=== PATIENT | female | born 1945 | race Caucasian/White ===

== ENCOUNTER 2022-10-02 09:55 | Outpatient (CLI) | payer MEDICARE, SELFPAY | END 2022-10-02 09:56 | disposition home or self-care (01) | LOC: NFLDREF 10-03 10:05 | PROVIDERS: PCP Family Medicine; Referring Provider Family Medicine; Visit Provider Family Medicine | DX: Z00.00 Encounter for general adult medical examination without abnormal findings (principal); E03.9 Hypothyroidism, unspecified; I82.409 Acute embolism and thrombosis of unspecified deep veins of unspecified lower extremity; L82.1 Other seborrheic keratosis; I26.99 Other pulmonary embolism without acute cor pulmonale; Z80.0 Family history of malignant neoplasm of digestive organs; Z79.01 Long term (current) use of anticoagulants | CPT/HCPCS: 80048; 80061; 82378; 84443 ==

== ENCOUNTER 2022-10-03 10:15 | Outpatient (CLI) | payer MEDICARE, SELFPAY ==
--- NOTE | 2022-10-03 10:15 | CRLHL7_ITS ---
For Patients: As a result of the Century Cures Act, medical imaging exams and procedure reports are released immediately into your electronic medical record. You may view this report before your referring provider. If you have questions, please contact your health care provider. BILATERAL SCREENING MAMMOGRAM WITH COMPUTER-AIDED DETECTION AND TOMOSYNTHESIS TECHNIQUE: CC and MLO views were obtained. These mammographic images have been obtained using full-field digital technique. These mammographic images were interpreted with the benefit of computer-aided detection. Breast Tomosynthesis was used in this interpretation. COMPARISON FILM: 10/02/21, 09/24/20, 09/01/18. FINDINGS: The breasts are almost entirely fatty IMPRESSION: There is no radiographic evidence for malignancy. ASSESSMENT: BI-RADS Category 1: Negative RECOMMENDATION: Routine screening mammogram in 1 year. A lay language report of this examination will be provided to the patient. Sergio Woodward M.D. Diagnostic/Nuclear Medicine Radiologist [email or web address] ORALIA/Dictated by: Sergio Woodward MD @ 10/03/2022 11:06:00 AM (Electronically Signed)
== END 2022-10-03 10:16 | disposition home or self-care (01) ==
LOC: MAMMO 10:16
PROVIDERS: PCP Family Medicine; Visit Provider Family Medicine
DX: Z12.31 Encounter for screening mammogram for malignant neoplasm of breast (principal)
CPT/HCPCS: 77063; 77067

== ENCOUNTER 2023-11-11 14:20 | Outpatient (CLI) | payer MEDICARE, SELFPAY ==
--- OUTSIDE RECORDS SUMMARY | 2023-11-11 14:23 | XMS_ITS | Referral Summary ---
Author Organization [facility] Address [address] [place] [address] Care Team Providers Care Associate Professor Of Violin Name Role Phone Unavailable Primary Care Provider Unavailabl e Source Comments Patient records contain information from all sites at [facility]. For routine questions regarding patient records, call [phone] during business hours, M-F 8:00 AM - 5:00 PM Central Time. Record requests for emergency care only can be directed to [phone] at any time.[facility] Allergies Active Allergy Reactions Criticality Noted Date Comments Animal Dander Shortness of breath (Reselect Reaction),Anaphylaxis 01/28/2012 Also dogs. Cat Hair Standardized Allergenic Extract Other (see comments) High 10/01/2020 Dog Dander Anaphylaxis 04/21/2011 Rivaroxaban Other (see comments) High 10/01/2020 Lip swelling Cetirizine Edema (Reselect Reaction) Medium 10/06/2019 Medications Medication Sig Dispensed Refills Start Date End Date Status levothyroxine (for_SYNTHROID, LEVOTHROID) 112 mcg tablet Take 100 mcg by mouth every morning before breakfast. Active amoxicillin (for_AMOXIL) 500 mg capsule TAKE FOUR CAPSULES BY MOUTH ONE HOUR BEFORE APPOINTMENT 12 capsule 1 08/03/[address] tablet Take 1 tablet by mouth daily. 05/23/2010 Active calcium carbonate-vitami n D3 600-125 mg-unit tablet Take 600 mg by mouth. Active cetirizine (ZyrTEC) 10 mg tablet Take 1 tablet by mouth daily as needed. 06/30/2014 Active omega 0-sbp-qbb-fish oil 1,000 mg (120 mg-180 mg) capsule Take 1,000 mg by mouth. Active EPINEPHrine 0.3 mg/0.3 mL injection syringe Inject 0.3 mg intramuscularly once as needed. 06/22/2015 Active vitamin E 400 unit capsule Take 1 capsule by mouth daily. 05/23/2010 Active loratadine-pseud oephedrine (Claritin-D 24 Hour) 10-240 mg per 24 hr tablet Take 1 tablet by mouth daily. Active warfarin (COUMADIN) 5 mg tablet Take 5 mg by mouth 5 (five) times a week. Active warfarin (COUMADIN) 7.5 mg tablet Take 7.5 mg by mouth 2 (two) times a week. Active sennosides-docus ate sodium (SENOKOT-S) 8.6-50 mg per tablet Take 4 tablets by mouth 2 (two) times a day. 11/27/2020 Active carboxymethylcel lulose-glycerin (Refresh Optive) 0.5-0.9 % ophthalmic solution Administer 1 drop into both eyes as needed for dry eyes. qod Active Active Problems Problem Noted Date Diagnosed Date Arthroplasty Total Hip Replacement Status Post L eft 11/28/2020 Immunizations Name Administration Dates Next Due HZV (ZOSTAVAX) 07/06/2015 HepA / HepB 01/22/2006,08/22/2005,07/25/2005 PPSV23 12/07/2015 Td Preservative Free (TENIVAC, DECAVAC) 01/31/20 03 Tdap 05/31/2012 Social History Tobacco Use Types Packs/Day Years Used Date Smoking Tobacco: Never Smokeless Tobacco: Never Alcohol Use Standard Drinks/Week Comments Never 0 (1 standard drink = 0.6 oz pur e alcohol) AUDIT-C Answer Date Recorded Q1: How often do you have a drink containing alc ohol? Never 10/06/2019 Average Number of Drinks Not on file 020 Frequency of Binge Drinking Not on file 09/08 Nutrition Answer Date Recorded Nutrition: EVOO Fat Source Unknown 07/31 Nutrition: Servings of Fruits/Vegetables per Day Not on file 07/31/2020 Dental Answer Date Recorded Dental: Regular Dentist Unknown 07/31/19 21 Sex and Gender Information Value Date Recorded Sex Assigned at Not on file Gender Identity Not on file Sexual Orientation Not on file Last Filed Vital Signs Vital Sign Reading Time Taken Comments Blood Pressure 123/58 03/02/2021 9:18 AM CDT Pulse 72 10/04/2015 8:04 AM CDT Temperature 37.7 ??C (99.9 ??F) 03/02/2021 9:18 AM CD T Respiratory Rate 20 03/02/2021 9:18 AM CDT Oxygen Saturation 98% 03/02/2021 9:18 AM CDT Inhaled Oxygen Concentration - - Weight 94.7 kg (208 lb 12.4 oz) 10/12/2020 2:07 PM CDT Height 160 cm (5' 2.99) 10/12/2020 2:07 PM CDT Body Mass Index 36.99 10/12/2020 2:07 PM CDT Plan of Treatment Upcoming Encounters Date Type Department Care Team (Latest Contact Info) Description 01/15/2024 8:15 AM CDT Comprehensive Visit Department of Ophthalmology in [place], [place] [address] [address] Uriel Lock M.D. [address], [place] [phone] Medical Devices Implanted Type Area Assembler Latches And Springs Device Identifier Shelf Expiration Date Model / Serial / Lot Hip Implant- [id number] Implanted:11/07 by Wayne Doyle M.D. (Quantity not on file) Hip Implant Left: Hip [place] ACCOLADEII /TRIDENTII / / Knee Implant Implanted:Wayne De La Garza M.D. (Quantity not on file) Knee Implant Left: Knee Knee Implant Implanted:Wayne De La Garza M.D. (Quantity not on file) Knee Implant Right: Knee Procedures Procedure Name Priority Date/Time Associated Diagnosis Comments EXTI THYROID-STIMULATING HORMONE-SENSITIVE (S-TSH), S Routine 03/01/2021 4:32 AM CDT BI BREAST SCREENING BILATERAL Routine 06/06/2015 9:30 AM BLUEPRINT CUTTER from Last 3 Months or Most Recently Relevant to Health Maintenance Results * BI Breast Screening Bilateral (06/06/2015 9:30 AM BLUEPRINT CUTTER) Anatomical Region Laterality Modality Breast Bilateral Mammography 06/06/2015 9:30 AM BLUEPRINT CUTTER Impressions 06/06/2015 2:57 PM BLUEPRINT CUTTER Negative. There is no mammographic evidence of malignancy. RECOMMENDATIONS: A 1 year screening mammogram is recommended. CODE: 1-NEGATIVE Appropriate letter sent. Full field digital mammography is used and Computer Aided Detection is performed on the digital mammogram images. Narrative 06/06/2015 2:57 PM BLUEPRINT CUTTER EXAM: [place] Mammo Screening w/ CADD INDICATION: Screening mammogram. COMPARISON: Previous studies dating back to 11/20/2000. DENSITY: The breasts are almost entirely fatty. FINDINGS: There are no significant masses, calcifications, or other findings in either breast. There has been no significant interval change. Procedure Note Kathleen Duenas M.D. / Kaylene Aguilar M.D. - 10/16/2016 EXAM: [place] Mammo Screening w/ CADD INDICATION: Screening mammogram. COMPARISON: Previous studies dating back to 11/20/2000. DENSITY: The breasts are almost entirely fatty. FINDINGS: There are no significant masses, calcifications, or other findings in either breast. There has been no significant interval change. IMPRESSION: Negative. There is no mammographic evidence of malignancy. RECOMMENDATIONS: A 1 year screening mammogram is recommended. CODE: 1-NEGATIVE Appropriate letter sent. Full field digital mammography is used and Computer Aided Detection is performed on the digital mammogram images. Meagan Headley IMMatthew BI PROCEDURES from Last 3 Months or Most Recently Relevant to Health Maintenance
--- OUTSIDE RECORDS SUMMARY | 2023-11-11 14:23 | XMS_ITS | Clinical Summary ---
Author Organization [facility] Address [place], [place] [address] Care Team Providers Care Assembler 1St Shift Name Role Phone Clinton Perez MD Primary Care Provider [phone] Allergies Active Allergy Reactions Criticality Noted Date Comments Animal Dander Anaphylaxis,Dyspnea High 01/28/2012 Also dogs. Cats (Fur, Dander, Saliva) Shortness Of Breath,Throat Swelling/Closing 01/28/2012 Also dogs. Cetirizine Edema High 10/06/2019 Dog Dander Anaphylaxis High 04/21/2011 Rivaroxaban Angioedema High 11/23/2020 Lip swelling Medications Medication Sig Dispensed Refills Start Date End Date Status levothyroxine (SYNTHROID) 100 mcg tablet Take 100 mcg by mouth before breakfast. Active aspirin (Adult Low Dose Aspirin) 81 mg enteric coated tablet Take 81 mg by mouth once daily with a meal. Active famotidine (PEPCID) 20 mg tabletIndications:Ra sh Take 1 tablet (20 mg) by mouth 2 times daily. 28 Tablet 03/06/2021 Active warfarin (Coumadin) 5 mg tablet Take as directed per doctor. 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 Cancer Mother of liver c ancer at age 73. History of smoking. No Known Problems Sister 1 at ag e 93. No Known Problems Sister 2 No Known Problems Son Relation Name Status Comments Brother Alive Daughter Alive Father Mother Sister 1 Sister 2 Alive Son Alive Social History Tobacco Use Types Packs/Day Years Used Date Smoking Tobacco: Never Smokeless Tobacco: Never Tobacco Cessation:Counseling Given: Yes Alcohol Use Standard Drinks/Week Comments Yes 0 (1 standard drink = 0.6 oz pur e alcohol) ocasionally Sex and Gender Information Value Date Recorded Sex Assigned at Not on file Gender Identity Not on file Sexual Orientation Not on file Obstetrics History Last Filed Vital Signs Vital Sign Reading Time Taken Comments Blood Pressure 133/67 03/06/2021 8:23 AM CDT Pulse 103 03/06/2021 8:23 AM CDT Temperature 36.6 ??C (97.9 ??F) 03/06/2021 8:23 AM CD T Respiratory Rate 18 03/06/2021 8:23 AM CDT Oxygen Saturation 95% 03/06/2021 8:23 AM CDT Inhaled Oxygen Concentration - - Weight 99.7 kg (219 lb 14.4 oz) 03/06/2021 4:13 AM CDT Height 162.6 cm (5' 4) 03/01/2021 10:0 8 AM CDT Body Mass Index 37.75 03/01/2021 10:08 AM CDT Plan of Treatment Health Maintenance Due Date Last Done Comments Depression screening for age 12+ 1957 BMI (ht and wt on same day) for age 18+ 1963 Hepatitis C screening for age 18-79 1963 Zoster (shingles) series for age 50+ (1 of 2) 1995 DEXA/DXA scan for age 65+ 2010 Pneumococcal series for age 65+ (1 of 1 - PCV) 2010 Tetanus booster 05/31/2022 05/31/2012, 01/30/2003 COVID-19 vaccine series ( season) 2023 Influenza for age 65+ 02/07/2024 Tdap Completed 05/31/2012 Medical Devices Implanted Type Area Bellows Tester Device Identifier Shelf Expiration Date Model / Serial / Lot Cmnt Bone Simplex P W/Tobramycin - [id number] Implanted:Qty: 2 on 03/15/2012 by Wayne Doyle MD at [facility] Left: Knee [employer] 10/05/2013 6197-9-001 # / / [id number] Compnt Fem Sz 5 Lt C/R Triathlon - [id number] Implanted:Qty: 1 on 03/15/2012 by Wayne Doyle MD at [facility] Left: Knee [employer] 10/05/2016 5510-F-501 # / / [id number] Baseplate Tibial Sz 4 - [id number] Implanted:Qty: 1 on 03/15/2012 by Wayne Doyle MD at [facility] Left: Knee [employer] 10/05/2016 5520-B-400 # / / [id number] Patella X3 S29x8 Triathlon - [id number] Implanted:Qty: 1 on 03/15/2012 by Wayne Doyle MD at [facility] Left: Knee [employer] 01/05/2017 5550-G-298 # / / [id number] Insert Tib Sz 4 13mm - [id number] Implanted:Qty: 1 on 03/15/2012 by Wayne Doyle MD at [facility] Left: Knee [employer] 01/05/2017 5531-G-413 # / / [id number] Baseplate Tibial Sz 4 - [id number] Implanted:Qty: 1 on 05/10/2012 by Wayne Doyle MD at [facility] Right: Knee [employer] 07/07/2016 5520-B-400 # / / [id number] Insert Tib Sz 4 13mm - [id number] Implanted:Qty: 1 on 05/10/2012 by Wayne Doyle MD at [facility] Right: Knee [employer] 01/04/2017 5531-G-413 # / / [id number] Cmnt Bone Simplex P W/Tobramycin - [id number] Implanted:Qty: 1 on 05/10/2012 by Wayne Doyle MD at [facility] Right: Knee [employer] 08/06/2013 6197-9-001 # / / [id number] Cmnt Bone Simplex P W/Tobramycin - [id number] Implanted:Qty: 1 on 05/10/2012 by Wayne Doyle MD at [facility] Right: Knee [employer] 11/06/2013 6197-9-001 # / / [id number] Patella 29x8mm Triathlon Symmetric X3 - [id number] Implanted:Qty: 1 on 05/10/2012 by Wayne Doyle MD at [facility] Right: Knee [employer] 02/06/2017 5550-G-298 # / / [id number] Fem Rt Sz5 Triathlon Cruc Ret Co Cr - [id number] Implanted:Qty: 1 on 05/10/2012 by Wayne Doyle MD at [facility] Right: Knee [employer] 10/06/2016 5510-F-502 # / / [id number] - [id number] Trident 0 Degree Polyethylene Insert Implanted:Qty: 1 on 11/26/2020 by Wayne Doyle MD at [facility] Left: Hip [employer] 03/05/2025 723-00-32D / / [id number] Shell Hip 50d Trident Ii Clusterhole Tritanium - [id number] Implanted:Qty: 1 on 11/26/2020 by Wayne Doyle MD at [facility] Left: Hip [employer] 02/21/2025 702-04-50D / / [id number] Screw Hip 6.5x30mm [place] Low Profile Hex - [id number] Implanted:Qty: 1 on 11/26/2020 by Wayne Doyle MD at [facility] Left: Hip [employer] 05/21/2025 [id number] / / [id number] Stem Hip Sz 4 127 Deg Accolade Ii - [id number] Implanted:Qty: 1 on 11/26/2020 by Wayne Doyle MD at [facility] Left: Hip [employer] 09/11/2025 [id number] / / [id number] Head Hip Od32mm -4 Biolox Delta C-Taper Alumina Cer - [id number] Implanted:Qty: 1 on 11/26/2020 by Wayne Doyle MD at [facility] Left: Hip [employer] 04/26/2025 [id number] / / [id number] Description:Ceramic V40 femo ral head, and not a C-taper. biolox delta ceramic V40 femoral head Advance Directives Documents on File Type Date Recorded Patient Egg Setter Expl anation Healthcare Directive 03/18/2012 4:11 PM * Full Code (Latest Code Status on File) Date Activated Date Inactivated Comments 03/01/2021 12:03 PM 03/06/2021 2:38 PM Question Answer Comments Code Status Discussion: Discussed * Full Code Date Activated Date Inactivated Comments 11/26/2020 6:05 AM 11/27/2020 3:51 PM Question Answer Comments Code Status Discussion: Per Existing Order * Full Code Date Activated Date Inactivated Comments 12/21/2012 9:46 AM 12/22/2012 11:49 AM * Full Code Date Activated Date Inactivated Comments 12/21/2012 5:52 AM 12/21/2012 9:46 AM * Full Code Date Activated Date Inactivated Comments 08/09/2012 10:41 AM 08/09/2012 4:23 PM Care Teams Assembler 1St Shift Relationship Specialty Start Date End Date Clinton Perez MD [address] [place] [address] PCP - General Family Practice 03/09/12
--- OUTSIDE RECORDS SUMMARY | 2023-11-11 14:23 | XMS_ITS | Clinical Summary ---
Author Organization [facility] Address [address] [place] [address] Care Team Providers Care Production Helper Name Role Phone Unavailable Primary Care Provider Unavailabl e Source Comments Patient records contain information from all sites at [facility]. For routine questions regarding patient records, call [phone] during business hours, M-F 8:00 AM - 5:00 PM Central Time. Record requests for emergency care only can be directed to [phone] at any time.[facility] Allergies Active Allergy Reactions Criticality Noted Date [...] mouth daily as needed. 06/30/2014 Active omega 1-ulu-gpm-fish oil 1,000 mg (120 mg-180 mg) capsule [...] Free (TENIVAC, DECAVAC) 01/31/20 03 Tdap 05/31/2012 Family History Medical History Relation Name Comments Hyperlipidemia Brother Liver cancer Mother Relation Name Status Comments Brother Mother Social History Tobacco Use Types Packs/Day Years [...] CDT Comprehensive Visit Department of Ophthalmology in [place], [place] [address] [address] Uriel Lock M.D. [address] [address] Health Maintenance Due Date Last Done Comments Hepatitis C Screening 1945 Zoster Vaccines (2 of 3) 08/31/2015 07/06/2015 Thyroid Stimulating Hormone (TSH) test for thyroid function 03/01/2022 03/01/2021, 06/15/2015, 06/19/2014, Additional history exists COVID-19 Vaccine (1 - 2022-2 4 season) 2023 Influenza Vaccine (#1) 2023 03/15/2014 Depression Screening (Annual PHQ-2) 06/08/2023 Fall Risk Screen (Annual) 06/08/2023 DTaP,Tdap,and Td Vaccines (3 - Td or Tdap) 09/13/2031 09/12/2021, 05/31/2012, 01/30/2003 Hepatitis A Vaccines Completed 01/22/2006, 08/22/2005, 07/25/2005 Mammogram Discontinued 06/06/2015, 05/09, 06/03/2013, Additional history exists Pneumococcal vaccine (65+ years) Completed 08/07/19 19, 12/07/2015 Medical Devices Implanted Type Area Helicopter Utility Aircrewman Device Identifier Shelf Expiration Date Model / Serial / Lot Hip Implant- [id number] Implanted:11/07 by Wayne Doyle M.D. (Quantity not on file) Hip Implant Left: Hip [place] ACCOLADEII /TRIDENTII / / Knee Implant Implanted:Wayne De La Garza M.D. (Quantity not on file) Knee Implant Left: Knee Knee Implant Implanted:Wayne De La Garza M.D. (Quantity not on file) Knee Implant Right: Knee Procedures Procedure Name Priority Date/Time Associated Diagnosis Comments EXTI THYROID-STIMULATING HORMONE-SENSITIVE (S-TSH), S Routine 03/01/2021 4:32 AM CDT BI BREAST SCREENING BILATERAL Routine 06/06/2015 9:30 AM FACILITIES ENGINEERING MANAGER from Last 3 Months or Most Recently Relevant to Health Maintenance Results * BI Breast Screening Bilateral (06/06/2015 9:30 AM FACILITIES ENGINEERING MANAGER) Anatomical Region Laterality Modality Breast Bilateral Mammography 06/06/2015 9:30 AM FACILITIES ENGINEERING MANAGER Impressions 06/06/2015 2:57 PM FACILITIES ENGINEERING MANAGER Negative. There is no mammographic evidence of malignancy. RECOMMENDATIONS: A 1 year screening mammogram is recommended. CODE: 1-NEGATIVE Appropriate letter sent. Full field digital mammography is used and Computer Aided Detection is performed on the digital mammogram images. Narrative 06/06/2015 2:57 PM FACILITIES ENGINEERING MANAGER EXAM: [place] Mammo Screening w/ CADD INDICATION: Screening mammogram. COMPARISON: Previous studies dating back to 11/20/2000. DENSITY: The breasts are almost entirely fatty. FINDINGS: There are no significant masses, calcifications, or other findings in either breast. There has been no significant interval change. Procedure Note Kathleen Duenas M.D. / Kaylene Aguilar M.D. - 10/16/2016 EXAM: [place] Mammo Screening w/ CADD INDICATION: Screening mammogram. [...]
--- OUTSIDE RECORDS SUMMARY | 2023-11-11 14:23 | XMS_ITS ---
Author Organization [facility] Address [address] [place] [address] Care Team Providers Care Envelope Patternmaker Name Role Phone Unavailable Unavailable Unavailable Surgery Details Not on file Complications Check Surgery Details section. Procedure Estimated Blood Loss Check Surgery Details section. Procedure Findings Check Surgery Details section. Procedure Specimens Taken Check Surgery Details section.
--- NOTE | 2023-11-11 14:40 | CRLHL7_ITS ---
For Patients: As a result of the Century Cures Act, medical imaging exams and procedure reports are released immediately into your electronic medical record. You may view this report before your referring provider. If you have questions, please contact your health care provider. BILATERAL DIGITAL SCREENING MAMMOGRAM WITH COMPUTER-AIDED DETECTION AND TOMOSYNTHESIS CLINICAL HISTORY: Routine screening exam. COMPARISON: 10/03/2022, 10/02/2021, 09/24/2020, 09/01/2018. TECHNIQUE: Digital mammogram in CC and MLO projections including computer-aided detection (CAD). Tomosynthesis was used in this interpretation. BREAST COMPOSITION: There are areas of scattered fibroglandular density. FINDINGS: RIGHT Breast: No suspicious findings. LEFT Breast: Focal asymmetric density within the lateral LEFT breast retroareolar plane, visualized only on the MLO view, 7 cm from the nipple. IMPRESSION: LEFT breast asymmetry/mass. RECOMMENDATIONS: Additional mammographic views of the LEFT breast including 3D spot compression MLO and 3D true lateral. LEFT breast ultrasound may also be required. BI-RADS Category 0: Incomplete: Need Additional Imaging Evaluation and/or Prior Mammograms for Comparison [facility] will contact the patient for follow-up. A lay language report of this examination will be provided to the patient. Dictated by Wayne Pepper MD @ 11/13/2023 12:29:58 PM meche/Dictated by: Wayne Pepper MD @ 11/13/2023 12:29:00 PM (Electronically Signed)
== END 2023-11-11 14:21 | disposition home or self-care (01) ==
PROVIDERS: PCP Family Medicine; Visit Provider Family Medicine
DX: Z12.31 Encounter for screening mammogram for malignant neoplasm of breast (principal); N63.20 Unspecified lump in the left breast, unspecified quadrant
CPT/HCPCS: 77063; 77067

== ENCOUNTER 2023-11-25 07:31 | Outpatient (CLI) | payer MEDICARE, SELFPAY ==
--- OUTSIDE RECORDS SUMMARY | 2023-11-25 07:34 | XMS_ITS | Clinical Summary ---
Author Organization [facility] Address [address] [place] [address] Care Team Providers Care Retail Planning Manager Name Role Phone Unavailable Primary Care Provider Unavailabl e Source Comments Patient records contain information from all sites at [facility]. For routine questions regarding patient records, call [phone] during business hours, M-F 8:00 AM - 5:00 PM Central Time. Record requests for emergency care only can be directed to [phone] at any time.[facility] Allergies Active Allergy Reactions Criticality Noted Date [...] mouth daily as needed. 06/30/2014 Active omega 9-bbn-hdk-fish oil 1,000 mg (120 mg-180 mg) capsule [...] CDT Comprehensive Visit Department of Ophthalmology in [place], [place] [address] [address] Uriel Lock M.D. [address] [address] Health Maintenance Due Date Last [...] 19, 12/07/2015 Medical Devices Implanted Type Area Catering Assistant Device Identifier Shelf Expiration Date Model / Serial / Lot Hip Implant- [id number] Implanted:11/07 by Wayne Doyle M.D. (Quantity not on file) Hip Implant Left: Hip [place] ACCOLADEII /TRIDENTII / / Knee Implant Implanted:Wayne De La Garza M.D. (Quantity not on file) Knee Implant Left: Knee Knee Implant Implanted:Wayne De La Garza M.D. (Quantity not on file) Knee Implant Right: Knee Procedures Procedure Name Priority Date/Time Associated Diagnosis Comments EXTI THYROID-STIMULATING HORMONE-SENSITIVE (S-TSH), S Routine 03/01/2021 4:32 AM CDT BI BREAST SCREENING BILATERAL Routine 06/06/2015 9:30 AM DIRECTOR OF TEACHER EDUCATION from Last 3 Months or Most Recently Relevant to Health Maintenance Results * BI Breast Screening Bilateral (06/06/2015 9:30 AM DIRECTOR OF TEACHER EDUCATION) Anatomical Region Laterality Modality Breast Bilateral Mammography 06/06/2015 9:30 AM DIRECTOR OF TEACHER EDUCATION Impressions 06/06/2015 2:57 PM DIRECTOR OF TEACHER EDUCATION Negative. There is no mammographic evidence of malignancy. RECOMMENDATIONS: A 1 year screening mammogram is recommended. CODE: 1-NEGATIVE Appropriate letter sent. Full field digital mammography is used and Computer Aided Detection is performed on the digital mammogram images. Narrative 06/06/2015 2:57 PM DIRECTOR OF TEACHER EDUCATION EXAM: [place] Mammo Screening w/ CADD INDICATION: Screening mammogram. COMPARISON: Previous studies dating back to 11/20/2000. DENSITY: The breasts are almost entirely fatty. FINDINGS: There are no significant masses, calcifications, or other findings in either breast. There has been no significant interval change. Procedure Note Kathleen Duenas M.D. / Kaylene Aguilar M.D. - 10/16/2016 EXAM: [place] Mammo Screening w/ CADD INDICATION: Screening mammogram. [...]
--- OUTSIDE RECORDS SUMMARY | 2023-11-25 07:34 | XMS_ITS | Clinical Summary ---
Author Organization [employer] [facility] Address [place], [place] [address] Care Team Providers Care Mapping Pilot Name Role Phone Clinton Perez MD Primary Care Provider [phone] Allergies Active Allergy Reactions Criticality Noted Date [...] Completed 05/31/2012 Medical Devices Implanted Type Area Seo Consultant Device Identifier Shelf Expiration Date Model / Serial / Lot Cmnt Bone Simplex P W/Tobramycin - [id number] Implanted:Qty: 2 on 03/15/2012 by Wayne Doyle MD at [facility] Left: Knee [employer] [facility] 10/05/2013 6197-9-001 # / / [id number] Compnt Fem Sz 5 Lt C/R Triathlon - [id number] Implanted:Qty: 1 on 03/15/2012 by Wayne Doyle MD at [facility] Left: Knee [employer] [facility] 10/05/2016 5510-F-501 # / / [id number] Baseplate Tibial Sz 4 - [id number] Implanted:Qty: 1 on 03/15/2012 by Wayne Doyle MD at [facility] Left: Knee [employer] [facility] 10/05/2016 5520-B-400 # / / HLJAA Patella X3 S29x8 Triathlon - [id number] Implanted:Qty: 1 on 03/15/2012 by Wayne Doyle MD at [facility] Left: Knee [facility] 01/05/2017 5550-G-298 # / / [id number] Insert Tib Sz 4 13mm - [id number] Implanted:Qty: 1 on 03/15/2012 by Wayne Doyle MD at [facility] Left: Knee [facility] 01/05/2017 5531-G-413 # / / [id number] Baseplate Tibial Sz 4 - [id number] Implanted:Qty: 1 on 05/10/2012 by Wayne Doyle MD at [facility] Right: Knee [facility] 07/07/2016 5520-B-400 # / / [id number] Insert Tib Sz 4 13mm - [id number] Implanted:Qty: 1 on 05/10/2012 by Wayne Doyle MD at [facility] Right: Knee [facility] 01/04/2017 5531-G-413 # / / [id number] Cmnt Bone Simplex P W/Tobramycin - [id number] Implanted:Qty: 1 on 05/10/2012 by Wayne Doyle MD at [facility] Right: Knee [facility] 08/06/2013 6197-9-001 # / / [id number] Cmnt Bone Simplex P W/Tobramycin - [id number] Implanted:Qty: 1 on 05/10/2012 by Wayne Doyle MD at [facility] Right: Knee [facility] 11/06/2013 6197-9-001 # / / [id number] Patella 29x8mm Triathlon Symmetric X3 - [id number] Implanted:Qty: 1 on 05/10/2012 by Wayne Doyle MD at [facility] Right: Knee [facility] 02/06/2017 5550-G-298 # / / 2TVW Fem Rt Sz5 Triathlon Cruc Ret Co Cr - [id number] Implanted:Qty: 1 on 05/10/2012 by Wayne Doyle MD at [facility] Right: Knee [facility] 10/06/2016 5510-F-502 # / / [id number] - [id number] Trident 0 Degree Polyethylene Insert Implanted:Qty: 1 on 11/26/2020 by Wayne Doyle MD at [facility] Left: Hip [facility] 03/05/2025 723-00-32D / / [id number] Shell Hip 50d Trident Ii Clusterhole Tritanium - [id number] Implanted:Qty: 1 on 11/26/2020 by Wayne Doyle MD at [facility] Left: Hip [facility] 02/21/2025 702-04-50D / / [id number] Screw Hip 6.5x30mm [place] Low Profile Hex - [id number] Implanted:Qty: 1 on 11/26/2020 by Wayne Doyle MD at [facility] Left: Hip [facility] 05/21/2025 7970-8588 / / [id number] Stem Hip Sz 4 127 Deg Accolade Ii - [id number] Implanted:Qty: 1 on 11/26/2020 by Wayne Doyle MD at [facility] Left: Hip [facility] 09/11/2025 1726-4381 / / [id number] Head Hip Od32mm -4 Biolox Delta C-Taper Alumina Cer - [id number] Implanted:Qty: 1 on 11/26/2020 by Wayne Doyle MD at [facility] Left: Hip [facility] 04/26/2025 6570-0-032 / / [id number] Description:Ceramic V40 femo ral head, and not a C-taper. 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
--- OUTSIDE RECORDS SUMMARY | 2023-11-25 07:34 | XMS_ITS | Referral Summary ---
Author Organization [facility] Address [address] [place] [address] Care Team Providers Care Mandolin Repair Person Name Role Phone Unavailable Primary Care Provider Unavailabl e Source Comments Patient records contain information from all sites at [facility]. For routine questions regarding patient records, call [phone] during business hours, M-F 8:00 AM - 5:00 PM Central Time. Record requests for emergency care only can be directed to [phone] at any time.[facility] Allergies Active Allergy Reactions Criticality Noted [...] mouth daily as needed. 06/30/2014 Active omega 2-wej-ard-fish oil 1,000 mg (120 mg-180 mg) capsule [...] CDT Comprehensive Visit Department of Ophthalmology in [place], [place] [address], [place] [address] Uriel Lock M.D. [address], [place] [phone] Medical Devices Implanted Type Area Sprayer Automatic Spray Machine Device Identifier Shelf Expiration Date Model / Serial / Lot Hip Implant- 021 Implanted:11/07 by Wayne Doyle M.D. (Quantity not on file) Hip Implant Left: Hip [place] ACCOLADEII /TRIDENTII / / Knee Implant Implanted:Wayne De La Garza M.D. (Quantity not on file) Knee Implant Left: Knee Knee Implant Implanted:Wayne De La Garza M.D. (Quantity not on file) Knee Implant Right: Knee Procedures Procedure Name Priority Date/Time Associated Diagnosis Comments EXTI THYROID-STIMULATING HORMONE-SENSITIVE (S-TSH), S Routine 03/01/2021 4:32 AM CDT BI BREAST SCREENING BILATERAL Routine 06/06/2015 9:30 AM SPEED BELT SANDER TENDER from Last 3 Months or Most Recently Relevant to Health Maintenance Results * BI Breast Screening Bilateral (06/06/2015 9:30 AM SPEED BELT SANDER TENDER) Anatomical Region Laterality Modality Breast Bilateral Mammography 06/06/2015 9:30 AM SPEED BELT SANDER TENDER Impressions 06/06/2015 2:57 PM SPEED BELT SANDER TENDER Negative. There is no mammographic evidence of malignancy. RECOMMENDATIONS: A 1 year screening mammogram is recommended. CODE: 1-NEGATIVE Appropriate letter sent. Full field digital mammography is used and Computer Aided Detection is performed on the digital mammogram images. Narrative 06/06/2015 2:57 PM SPEED BELT SANDER TENDER EXAM: [place] Mammo Screening w/ CADD INDICATION: Screening mammogram. COMPARISON: Previous studies dating back to 11/20/2000. DENSITY: The breasts are almost entirely fatty. FINDINGS: There are no significant masses, calcifications, or other findings in either breast. There has been no significant interval change. Procedure Note Kathleen Duenas M.D. / Kaylene Aguilar M.D. - 10/16/2016 EXAM: [place] Mammo Screening w/ CADD INDICATION: Screening mammogram. [...]
--- OUTSIDE RECORDS SUMMARY | 2023-11-25 07:34 | XMS_ITS ---
Author Organization [facility] Address [address] [place] [address] Care Team Providers Care Silk Screen Processor Name Role Phone Unavailable Unavailable Unavailable Surgery Details Not on file Complications Check Surgery Details section. Procedure Estimated Blood Loss Check Surgery Details section. Procedure Findings Check Surgery Details section. Procedure Specimens Taken Check Surgery Details section.
--- NOTE | 2023-11-25 07:45 | CRLHL7_ITS ---
For Patients: As a result of the Cures Act, medical imaging exams and procedure reports are released immediately into your electronic medical record. You may view this report before your referring provider. If you have questions, please contact your health care provider. DIGITAL DIAGNOSTIC LEFT MAMMOGRAM USING TOMOSYNTHESIS AND COMPUTER-AIDED DETECTION LEFT BREAST ULTRASOUND CLINICAL HISTORY: LEFT breast mass/asymmetry. COMPARISON: 11/11/2023. TECHNIQUE: Digital LEFT mammogram in two projections with computer-aided detection. Tomosynthesis was used in this interpretation. Real-time ultrasound imaging of LEFT breast with imaging documentation. Scanning was performed by both the technologist and the radiologist. BREAST COMPOSITION: There are areas of scattered fibroglandular density. FINDINGS: 3D spot compression MLO and 3D true lateral LEFT breast mammogram images submitted. Decreased conspicuity of the previously noted asymmetric density. No architectural distortion. No suspicious calcifications or adenopathy. Targeted LEFT breast ultrasound performed in the lower outer quadrant 9 cm from the nipple, 4 o`clock. Normal breast tissue is present. No suspicious findings. IMPRESSION: No evidence of malignancy. RECOMMENDATIONS: Annual bilateral screening mammography. Results and recommendations discussed with the patient. BI-RADS Category 2: Benign A lay language report of this examination will be provided to the patient. Dictated by Wayne Pepper MD @ 11/25/2023 1:11:46 PM /Dictated by: Wayne Pepper MD @ 11/25/2023 1:11:00 PM (Electronically Signed)
--- NOTE | 2023-11-25 08:15 | CRLHL7_ITS ---
For Patients: As a result of the Cures Act, medical imaging exams and procedure reports are released immediately into your electronic medical record. You may view this report before your referring provider. If you have questions, please contact your health care provider. PLEASE SEE DIGITAL DIAGNOSTIC LEFT MAMMOGRAM PERFORMED SAME DAY CRL:meche mcgregor/Dictated by: Wayne Pepper MD @ 11/25/2023 1:11:00 PM (Electronically Signed)
== END 2023-11-25 07:32 | disposition home or self-care (01) ==
LOC: MAMMO 07:31
PROVIDERS: PCP Family Medicine; Visit Provider Family Medicine
DX: N63.20 Unspecified lump in the left breast, unspecified quadrant (principal); R92.8 Other abnormal and inconclusive findings on diagnostic imaging of breast
CPT/HCPCS: 76642; 77065; G0279

== ENCOUNTER 2023-12-26 12:10 | Outpatient (CLI) | payer MEDICARE, SELFPAY ==
--- OUTSIDE RECORDS SUMMARY | 2023-12-29 16:24 | XMS_ITS ---
Author Organization [facility] Address [address] [place] [address] Care Team Providers Care Print Binding Worker Name Role Phone Unavailable Unavailable Unavailable Surgery Details Not on file Complications Check Surgery Details section. Procedure Estimated Blood Loss Check Surgery Details section. Procedure Findings Check Surgery Details section. Procedure Specimens Taken Check Surgery Details section.
--- OUTSIDE RECORDS SUMMARY | 2023-12-29 16:24 | XMS_ITS | Referral Summary ---
Author Organization [facility] Address [address] [place] [address] Care Team Providers Care Editing Internship Name Role Phone Unavailable Primary Care Provider Unavailabl e Source Comments Patient records contain information from all sites at [facility]. For routine questions regarding patient records, call [phone] during business hours, M-F 8:00 AM - 5:00 PM Central Time. Record requests for emergency care only can be directed to [phone] at any time.[facility] Allergies Active Allergy Reactions Criticality Noted Date [...] mouth daily as needed. 06/30/2014 Active omega 1-ljg-osu-fish oil 1,000 mg (120 mg-180 mg) capsule [...] CDT Comprehensive Visit Department of Ophthalmology in [place], [place] [address], [place] [address] Uriel Lock M.D. [address], [place] [phone] Medical Devices Implanted Type Area Door Manager Device Identifier Shelf Expiration Date Model / Serial / Lot Hip Implant- 021 Implanted:11/07 by Wayne Doyle M.D. (Quantity not on file) Hip Implant Left: Hip [place] ACCOLADEII /TRIDENTII / / Knee Implant Implanted:Wayne De La Garza M.D. (Quantity not on file) Knee Implant Left: Knee Knee Implant Implanted:Wayne De La Garza M.D. (Quantity not on file) Knee Implant Right: Knee Procedures Procedure Name Priority Date/Time Associated Diagnosis Comments THYROID-STIMULATING HORMONE-SENSITIVE (S-TSH) Routine 06/15/2015 7:41 AM AERODYNAMIC CONSULTANT BI BREAST SCREENING BILATERAL Routine 06/06/2015 9:30 AM AERODYNAMIC CONSULTANT from Last 3 Months or Most Recently Relevant to Health Maintenance Results * Thyroid-Stimulating Hormone-Sensitive (s-TSH) (06/15/2015 7:41 AM AERODYNAMIC CONSULTANT) TSH (Thyrotropin) 0.34 0.27 - 4.20 MIUL POWERCHART Blood 06/15/2015 7:41 AM AERODYNAMIC CONSULTANT Clinton Perez M.D. LAB BLOOD ADD-ON POWERCHART * BI Breast Screening Bilateral (06/06/2015 9:30 AM AERODYNAMIC CONSULTANT) Anatomical Region Laterality Modality Breast Bilateral Mammography 06/06/2015 9:30 AM AERODYNAMIC CONSULTANT Impressions 06/06/2015 2:57 PM AERODYNAMIC CONSULTANT Negative. There is no mammographic evidence of malignancy. RECOMMENDATIONS: A 1 year screening mammogram is recommended. CODE: 1-NEGATIVE Appropriate letter sent. Full field digital mammography is used and Computer Aided Detection is performed on the digital mammogram images. Narrative 06/06/2015 2:57 PM AERODYNAMIC CONSULTANT EXAM: [place] Mammo Screening w/ CADD INDICATION: Screening mammogram. COMPARISON: Previous studies dating back to 11/20/2000. DENSITY: The breasts are almost entirely fatty. FINDINGS: There are no significant masses, calcifications, or other findings in either breast. There has been no significant interval change. Procedure Note Kathleen Duenas M.D. / Kaylene Aguilar M.D. - 10/16/2016 EXAM: [place] Mammo Screening w/ CADD INDICATION: Screening mammogram. [...] performed on the digital mammogram images. Meagan SMITH BI PROCEDURES from Last 3 Months or Most Recently Relevant to Health Maintenance
--- OUTSIDE RECORDS SUMMARY | 2023-12-29 16:24 | XMS_ITS | Clinical Summary ---
Author Organization [facility] Address [address] [place] [address] Care Team Providers Care Physical Sciences Professor Name Role Phone Unavailable Primary Care Provider Unavailabl e Source Comments Patient records contain information from all sites at [facility]. For routine questions regarding patient records, call [phone] during business hours, M-F 8:00 AM - 5:00 PM Central Time. Record requests for emergency care only can be directed to [phone] at any time.[facility] Allergies Active Allergy Reactions Criticality Noted [...] mouth daily as needed. 06/30/2014 Active omega 7-rir-lmk-fish oil 1,000 mg (120 mg-180 mg) capsule [...] CDT Comprehensive Visit Department of Ophthalmology in [place], [place] [address] [address] Uriel Lock M.D. [address] [address] Health Maintenance Due Date Last Done Comments Hepatitis C Screening 1945 Zoster Vaccines (2 of 3) 08/31/2015 07/06/2015 Thyroid Stimulating Hormone (TSH) test for thyroid function 03/01/2022 03/01/2021, 06/15/2015, 06/19/2014, Additional history exists COVID-19 Vaccine (1 - 2022-2 4 season) 2023 Depression Screening (Annual PHQ-2) 06/08/2023 Fall Risk Screen (Annual) 06/08/2023 Influenza Vaccine (#1) 2024 03/15/2014 DTaP,Tdap,and Td Vaccines (3 - Td or Tdap) 09/13/2031 09/12/2021, 05/31/2012, 01/30/2003 Hepatitis A Vaccines Completed 01/22/2006, 08/22/2005, 07/25/2005 Mammogram Discontinued 06/06/2015, 05/09, 06/03/2013, Additional history exists Pneumococcal vaccine (65+ years) Completed 08/07/19 19, 12/07/2015 Medical Devices Implanted Type Area Quality Auditor Device Identifier Shelf Expiration Date Model / [...] THYROID-STIMULATING HORMONE-SENSITIVE (S-TSH) Routine 06/15/2015 7:41 AM LEARNING COORDINATOR BI BREAST SCREENING BILATERAL Routine 06/06/2015 9:30 AM LEARNING COORDINATOR from Last 3 Months or Most Recently Relevant to Health Maintenance Results * Thyroid-Stimulating Hormone-Sensitive (s-TSH) (06/15/2015 7:41 AM LEARNING COORDINATOR) TSH (Thyrotropin) 0.34 0.27 - 4.20 MIUL POWERCHART Blood 06/15/2015 7:41 AM LEARNING COORDINATOR Clinton Perez M.D. LAB BLOOD ADD-ON POWERCHART * BI Breast Screening Bilateral (06/06/2015 9:30 AM LEARNING COORDINATOR) Anatomical Region Laterality Modality Breast Bilateral Mammography 06/06/2015 9:30 AM LEARNING COORDINATOR Impressions 06/06/2015 2:57 PM LEARNING COORDINATOR Negative. There is no mammographic evidence of malignancy. RECOMMENDATIONS: A 1 year screening mammogram is recommended. CODE: 1-NEGATIVE Appropriate letter sent. Full field digital mammography is used and Computer Aided Detection is performed on the digital mammogram images. Narrative 06/06/2015 2:57 PM LEARNING COORDINATOR EXAM: [place] Mammo Screening w/ CADD INDICATION: Screening mammogram. COMPARISON: Previous studies dating back to 11/20/2000. DENSITY: The breasts are almost entirely fatty. FINDINGS: There are no significant masses, calcifications, or other findings in either breast. There has been no significant interval change. Procedure Note Kathleen Duenas M.D. / ProviderKaylene M.D. - 10/16/2016 EXAM: [place] Mammo Screening [...]
--- OUTSIDE RECORDS SUMMARY | 2023-12-29 16:24 | XMS_ITS | Clinical Summary ---
Author Organization [employer] [facility] Address [place], [place] [address] Care Team Providers Care Steeplechase Jockey Name Role Phone Clinton Perez MD Primary Care Provider [phone] Allergies Active Allergy Reactions Criticality Noted Date [...] Completed 05/31/2012 Medical Devices Implanted Type Area Junior Account Manager Device Identifier Shelf Expiration Date Model / Serial / Lot Cmnt Bone Simplex P W/Tobramycin - [id number] Implanted:Qty: 2 on 03/15/2012 by Wayne Doyle MD at [facility] Left: Knee [employer] [facility] 10/05/2013 6197-9-001 # / / [id number] Compnt Fem Sz 5 Lt C/R Triathlon - [id number] Implanted:Qty: 1 on 03/15/2012 by Wayne Doyle MD at [facility] Left: Knee [facility] 10/05/2016 5510-F-501 # / / [id number] Baseplate Tibial Sz 4 - [id number] Implanted:Qty: 1 on 03/15/2012 by Wayne Doyle MD at [facility] Left: Knee [facility] 10/05/2016 5520-B-400 # / / HLJAA Patella X3 S29x8 Triathlon - [id number] Implanted:Qty: 1 on 03/15/2012 by Wayne Doyle MD at [facility] Left: Knee [facility] 01/05/2017 5550-G-298 # / / [id number] Insert Tib Sz 4 13mm - [id number] Implanted:Qty: 1 on 03/15/2012 by Wayne oDyle MD at [facility] Left: Knee [facility] 01/05/2017 5531-G-413 # / / [id number] Baseplate Tibial Sz 4 - [id number] Implanted:Qty: 1 on 05/10/2012 by Wayne Doyle MD at [facility] Right: Knee [employer] [facility] 07/07/2016 5520-B-400 # / / GXHY Insert Tib Sz 4 13mm - [id number] Implanted:Qty: 1 on 05/10/2012 by Wayne Doyle MD at [facility] Right: Knee [employer] [facility] 01/04/2017 5531-G-413 # / / [id number] Cmnt Bone Simplex P W/Tobramycin - [id number] Implanted:Qty: 1 on 05/10/2012 by Wayne Doyle MD at [facility] Right: Knee [facility] 08/06/2013 6197-9-001 # / / [id number] Cmnt Bone Simplex P W/Tobramycin - [id number] Implanted:Qty: 1 on 05/10/2012 by Wayne Doyle MD at [facility] Right: Knee [employer] [facility] 11/06/2013 6197-9-001 # / / [id number] Patella 29x8mm Triathlon Symmetric X3 - [id number] Implanted:Qty: 1 on 05/10/2012 by Wayne Doyle MD at [facility] Right: Knee [employer] [facility] 02/06/2017 5550-G-298 # / / 2TVW Fem Rt Sz5 Triathlon Cruc Ret Co Cr - [id number] Implanted:Qty: 1 on 05/10/2012 by Wayne Doyle MD at [facility] Right: Knee [facility] 10/06/2016 5510-F-502 # / / S9EHY G225-63-52i - [id number] Trident 0 Degree Polyethylene Insert Implanted:Qty: 1 on 11/26/2020 by Wayne Doyle MD at [facility] Left: Hip [employer] [facility] 03/05/2025 723-00-32D / / [id number] Shell Hip 50d Trident Ii Clusterhole Tritanium - [id number] Implanted:Qty: 1 on 11/26/2020 by Wayne Doyle MD at [facility] Left: Hip [facility] 02/21/2025 702-04-50D / / [id number] Screw Hip 6.5x30mm [employer] Low Profile Hex - [id number] Implanted:Qty: 1 on 11/26/2020 by Wayne Doyle MD at [facility] Left: Hip [facility] 05/21/2025 6144-2047 / / [id number] Stem Hip Sz 4 127 Deg Accolade Ii - [id number] Implanted:Qty: 1 on 11/26/2020 by Wayne Doyle MD at [facility] Left: Hip [facility] 09/11/2025 2559-9522 / / [id number] Head Hip Od32mm -4 Biolox Delta C-Taper Alumina Cer - [id number] Implanted:Qty: 1 on 11/26/2020 by Wayne Doyle MD at [facility] Left: Hip [facility] 04/26/2025 6570-0-032 / / [id number] Description:Ceramic V40 femo ral head, and not a C-taper. biolox delta ceramic V40 femoral head Advance Directives Documents on File Type Date Recorded Patient Senior Patient Account Representative Expl anation Healthcare Directive 03/18/2012 4:11 PM [...] 10:41 AM 08/09/2012 4:23 PM Care Teams Steeplechase Jockey Relationship Specialty Start Date End Date Clinton Perez MD [address] [place] [address] PCP - General Family Practice 03/09/12
== END 2023-12-26 12:11 | disposition home or self-care (01) ==
LOC: NFLDREF 12-29 16:23
PROVIDERS: PCP Family Medicine; Referring Provider Family Medicine; Visit Provider Physician Assistant
DX: N39.0 Urinary tract infection, site not specified (principal); B96.20 Unspecified Escherichia coli [E. coli] as the cause of diseases classified elsewhere
CPT/HCPCS: 87086; 87186

== ENCOUNTER 2024-01-15 13:45 | Outpatient (CLI) | payer MEDICARE, SELFPAY ==
--- OUTSIDE RECORDS SUMMARY | 2024-01-22 11:02 | XMS_ITS | Clinical Summary ---
Author Organization [employer] [facility] Address [place], [place] [address] Care Team Providers Care Fur Clipper Name Role Phone Clinton Perez MD Primary Care Provider [phone] Allergies Active Allergy Reactions Criticality Noted Date [...] Completed 05/31/2012 Medical Devices Implanted Type Area Breeding Technician Device Identifier Shelf Expiration Date Model / Serial / Lot Cmnt Bone Simplex P W/Tobramycin - [id number] Implanted:Qty: 2 on 03/15/2012 by Wayne Doyle MD at [facility] Left: Knee [employer] 10/05/2013 6197-9-001 # / / [id number] Compnt Fem Sz 5 Lt C/R Triathlon - [id number] Implanted:Qty: 1 on 03/15/2012 by Wayne Doyle MD at [facility] Left: Knee [employer] 10/05/2016 5510-F-501 # / / [id number] Baseplate Tibial Sz 4 - [id number] Implanted:Qty: 1 on 03/15/2012 by Wayne Doyle MD at [facility] Left: Knee [employer] 10/05/2016 5520-B-400 # / / HLJAA Patella X3 S29x8 Triathlon - [id number] Implanted:Qty: 1 on 03/15/2012 by Wayne Doyle MD at [facility] Left: Knee [employer] 01/05/2017 5550-G-298 # / / [id number] Insert Tib Sz 4 13mm - [id number] Implanted:Qty: 1 on 03/15/2012 by Wayne Doyle MD at [facility] Left: Knee [employer] 01/05/2017 5531-G-413 # / / [id number] Baseplate Tibial Sz 4 - [id number] Implanted:Qty: 1 on 05/10/2012 by Wayne Doyle MD at [facility] Right: Knee [employer] 07/07/2016 5520-B-400 # / / GXHY Insert Tib Sz 4 13mm - [id number] Implanted:Qty: 1 on 05/10/2012 by Wayne Doyle MD at [facility] Right: Knee [employer] 01/04/2017 5531-G-413 # / / [id number] Cmnt Bone Simplex P W/Tobramycin - [id number] Implanted:Qty: 1 on 05/10/2012 by Wayne Doyle MD at [facility] Right: Knee [employer] 08/06/2013 6197-9-001 # / / [id number] Cmnt Bone Simplex P W/Tobramycin - [id number] Implanted:Qty: 1 on 05/10/2012 by Wayne Doyle MD at [facility] Right: Knee [employer] 11/06/2013 6197-9-001 # / / [id number] Patella 29x8mm Triathlon Symmetric X3 - [id number] Implanted:Qty: 1 on 05/10/2012 by Wayne Doyle MD at [facility] Right: Knee [employer] 02/06/2017 5550-G-298 # / / 2TVW Fem Rt Sz5 Triathlon Cruc Ret Co Cr - [id number] Implanted:Qty: 1 on 05/10/2012 by Wayne Doyle MD at [facility] Right: Knee [employer] 10/06/2016 5510-F-502 # / / S9EHY [id number] - [id number] Trident 0 Degree Polyethylene Insert Implanted:Qty: 1 on 11/26/2020 by Wayne Doyle MD at [facility] Left: Hip [employer] 03/05/2025 723-00-32D / / [id number] Shell Hip 50d Trident Ii Clusterhole Tritanium - [id number] Implanted:Qty: 1 on 11/26/2020 by Wayne Doyle MD at [facility] Left: Hip [employer] 02/21/2025 702-04-50D / / [id number] Screw Hip 6.5x30mm Rye Low Profile Hex - [id number] Implanted:Qty: 1 on 11/26/2020 by Wayne Doyle MD at [facility] Left: Hip [employer] 05/21/2025 0024-9031 / / ZEKH Stem Hip Sz 4 127 Deg Accolade Ii - [id number] Implanted:Qty: 1 on 11/26/2020 by Wayne Doyle MD at [facility] Left: Hip [employer] 09/11/2025 5054-5603 / / [id number] Head Hip Od32mm -4 Biolox Delta C-Taper Alumina Cer - [id number] Implanted:Qty: 1 on 11/26/2020 by Wayne Doyle MD at [facility] Left: Hip [employer] 04/26/2025 6570-0-032 / / [id number] Description:Ceramic V40 femo ral head, and not a C-taper. biolox delta ceramic V40 femoral head Advance Directives Documents on File Type Date Recorded Patient Garden Implement Mechanic Expl anation Healthcare Directive 03/18/2012 4:11 PM [...] 10:41 AM 08/09/2012 4:23 PM Care Teams Fur Clipper Relationship Specialty Start Date End Date Clinton Perez MD [address] [place] [address] PCP - General Family Practice 03/09/12
== END 2024-01-15 13:46 | disposition home or self-care (01) ==
LOC: NFLDREF 01-22 11:00
PROVIDERS: PCP Family Medicine; Referring Provider Family Medicine; Visit Provider Family Medicine
DX: E03.9 Hypothyroidism, unspecified (principal); Z80.0 Family history of malignant neoplasm of digestive organs; Z13.220 Encounter for screening for lipoid disorders; Z13.228 Encounter for screening for other metabolic disorders
CPT/HCPCS: 80053; 80061; 82378; 84443

== ENCOUNTER 2024-03-23 16:19 | Outpatient (CLI) | payer MEDICARE, SELFPAY ==
--- OUTSIDE RECORDS SUMMARY | 2024-03-27 04:08 | XMS_ITS | Clinical Summary ---
Author Organization [employer] [facility] Address [place], [place] [address] Care Team Providers Care Facilities Assistant Name Role Phone Clinton Perez MD Primary Care Provider [phone] Allergies Active Allergy Reactions Criticality Noted Date [...] 65+ (1 of 1 - PCV) 2010 RSV vaccine for adults or pr egnancy (1 - 1-dose 75+ series) 01/11/2020 Tetanus booster 05/31/2022 05/31/2012, 01/30/2003 COVID-19 vaccine series ( season) 2024 Influenza for age 65+ 02/07/2024 Tdap Completed 05/31/2012 Medical Devices Implanted Type Area Lieutenant Ballistics Device Identifier Shelf Expiration Date Model / Serial / Lot Cmnt Bone Simplex P W/Tobramycin - [id number] Implanted:Qty: 2 on 03/15/2012 by Wayne Doyle MD at [facility] Left: Knee [employer] 10/05/2013 6197-9-001 # / / [id number] Compnt Fem Sz 5 Lt C/R Triathlon - [id number] Implanted:Qty: 1 on 03/15/2012 by Wayne Doyle MD at [facility] Left: Knee [employer] 10/05/2016 5510-F-501 # / / [id number] Baseplate Tibial Sz 4 - [id number] Implanted:Qty: 1 on 03/15/2012 by Wayne Doyle MD at [facility] Left: Knee [employer] 10/05/2016 5520-B-400 # / / HLJAA Patella X3 S29x8 Triathlon - [id number] Implanted:Qty: 1 on 03/15/2012 by Wayne Doyle MD at [facility] Left: Knee [employer] 01/05/2017 5550-G-298 # / / [id number] Insert Tib Sz 4 13mm - [id number] Implanted:Qty: 1 on 03/15/2012 by Wayne Doyle MD at [facility] Left: Knee [employer] 01/05/2017 5531-G-413 # / / [id number] Baseplate Tibial Sz 4 - [id number] Implanted:Qty: 1 on 05/10/2012 by Wayne Doyle MD at [facility] Right: Knee [employer] 07/07/2016 5520-B-400 # / / GXHY Insert Tib Sz 4 13mm - [id number] Implanted:Qty: 1 on 05/10/2012 by Wayne Doyle MD at [facility] Right: Knee [employer] 01/04/2017 5531-G-413 # / / [id number] Cmnt Bone Simplex P W/Tobramycin - [id number] Implanted:Qty: 1 on 05/10/2012 by Wayne Doyle MD at [facility] Right: Knee [employer] 08/06/2013 6197-9-001 # / / [id number] Cmnt Bone Simplex P W/Tobramycin - [id number] Implanted:Qty: 1 on 05/10/2012 by Wayne Doyle MD at [facility] Right: Knee [employer] 11/06/2013 6197-9-001 # / / [id number] Patella 29x8mm Triathlon Symmetric X3 - [id number] Implanted:Qty: 1 on 05/10/2012 by Wayne Doyle MD at [facility] Right: Knee [employer] 02/06/2017 5550-G-298 # / / 2TVW Fem Rt Sz5 Triathlon Cruc Ret Co Cr - [id number] Implanted:Qty: 1 on 05/10/2012 by Wayne Doyle MD at [facility] Right: Knee [employer] 10/06/2016 5510-F-502 # / / S9EHY [id number] - [id number] Trident 0 Degree Polyethylene Insert Implanted:Qty: 1 on 11/26/2020 by Wayne Doyle MD at [facility] Left: Hip [employer] 03/05/2025 723-00-32D / / [id number] Shell Hip 50d Trident Ii Clusterhole Tritanium - [id number] Implanted:Qty: 1 on 11/26/2020 by Wayne Doyle MD at [facility] Left: Hip [employer] 02/21/2025 702-04-50D / / [id number] Screw Hip 6.5x30mm [employer] Low Profile Hex - [id number] Implanted:Qty: 1 on 11/26/2020 by Wayne Doyle MD at [facility] Left: Hip [employer] 05/21/2025 1749-7794 / / ZEKH Stem Hip Sz 4 127 Deg Accolade Ii - [id number] Implanted:Qty: 1 on 11/26/2020 by Wayne Doyle MD at [facility] Left: Hip [employer] 09/11/2025 6101-3230 / / [id number] Head Hip Od32mm -4 Biolox Delta C-Taper Alumina Cer - [id number] Implanted:Qty: 1 on 11/26/2020 by Wayne Doyle MD at [facility] Left: Hip [employer] 04/26/2025 6570-0-032 / / [id number] Description:Ceramic V40 femo ral head, and not a C-taper. 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
== END 2024-03-23 16:20 | disposition home or self-care (01) ==
LOC: NFLDREF 03-27 04:06
PROVIDERS: PCP Family Medicine; Referring Provider Family Medicine
DX: N39.0 Urinary tract infection, site not specified (principal); N30.01 Acute cystitis with hematuria
CPT/HCPCS: 87086; 87186

== ENCOUNTER 2024-03-29 09:59 | Outpatient (CLI) | payer MEDICARE, SELFPAY ==
--- OUTSIDE RECORDS SUMMARY | 2024-03-31 11:16 | XMS_ITS | Clinical Summary ---
Author Organization [employer] [facility] Address [place], [place] [address] Care Team Providers Care Financial Analysis Advisor Name Role Phone Clinton Perez MD Primary Care Provider Allergies Active Allergy Reactions Criticality Noted Date [...] Completed 05/31/2012 Medical Devices Implanted Type Area Event Marketing Representative Device Identifier Shelf Expiration Date Model / Serial / Lot Cmnt Bone Simplex P W/Tobramycin - [id number] Implanted:Qty: 2 on 03/15/2012 by Wayne Doyle MD at [facility] Left: Knee [employer] 10/05/2013 6197-9-001 # / / [id number] Compnt Fem Sz 5 Lt C/R Triathlon - [id number] Implanted:Qty: 1 on 03/15/2012 by Wayne Doyle MD at [facility] Left: Knee [employer] 10/05/2016 5510-F-501 # / / [id number] Baseplate Tibial Sz 4 - [id number] Implanted:Qty: 1 on 03/15/2012 by Wayne Doyle MD at [facility] Left: Knee [employer] 10/05/2016 5520-B-400 # / / HLJAA Patella X3 S29x8 Triathlon - [id number] Implanted:Qty: 1 on 03/15/2012 by Wayne Doyle MD at [facility] Left: Knee [employer] 01/05/2017 5550-G-298 # / / [id number] Insert Tib Sz 4 13mm - [id number] Implanted:Qty: 1 on 03/15/2012 by Wayne Doyle MD at [facility] Left: Knee [employer] 01/05/2017 5531-G-413 # / / [id number] Baseplate Tibial Sz 4 - [id number] Implanted:Qty: 1 on 05/10/2012 by Wayne Doyle MD at [facility] Right: Knee [employer] 07/07/2016 5520-B-400 # / / GXHY Insert Tib Sz 4 13mm - [id number] Implanted:Qty: 1 on 05/10/2012 by Wayne Doyle MD at [facility] Right: Knee [employer] 01/04/2017 5531-G-413 # / / [id number] Cmnt Bone Simplex P W/Tobramycin - [id number] Implanted:Qty: 1 on 05/10/2012 by Wayne Doyle MD at [facility] Right: Knee [employer] 08/06/2013 6197-9-001 # / / [id number] Cmnt Bone Simplex P W/Tobramycin - [id number] Implanted:Qty: 1 on 05/10/2012 by Wayne Doyle MD at [facility] Right: Knee [employer] 11/06/2013 6197-9-001 # / / [id number] Patella 29x8mm Triathlon Symmetric X3 - [id number] Implanted:Qty: 1 on 05/10/2012 by Wayne Doyle MD at [facility] Right: Knee [employer] 02/06/2017 5550-G-298 # / / 2TVW Fem Rt Sz5 Triathlon Cruc Ret Co Cr - [id number] Implanted:Qty: 1 on 05/10/2012 by Wayne Doyle MD at [facility] Right: Knee [employer] 10/06/2016 5510-F-502 # / / S9EHY [id number] - [id number] Trident 0 Degree Polyethylene Insert Implanted:Qty: 1 on 11/26/2020 by Wayne Doyle MD at [facility] Left: Hip [employer] 03/05/2025 723-00-32D / / [id number] Shell Hip 50d Trident Ii Clusterhole Tritanium - [id number] Implanted:Qty: 1 on 11/26/2020 by Wayne Doyle MD at [facility] Left: Hip [employer] 02/21/2025 702-04-50D / / [id number] Screw Hip 6.5x30mm [employer] Low Profile Hex - [id number] Implanted:Qty: 1 on 11/26/2020 by Wayne Doyle MD at [facility] Left: Hip [employer] 05/21/2025 3722-0747 / / ZEKH Stem Hip Sz 4 127 Deg Accolade Ii - [id number] Implanted:Qty: 1 on 11/26/2020 by Wayne Doyle MD at [facility] Left: Hip [employer] 09/11/2025 2992-3798 / / [id number] Head Hip Od32mm -4 Biolox Delta C-Taper Alumina Cer - [id number] Implanted:Qty: 1 on 11/26/2020 by Wayne Doyle MD at [facility] Left: Hip [employer] 04/26/2025 6570-0-032 / / [id number] Description:Ceramic V40 femo ral head, and not a C-taper. 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
== END 2024-03-29 10:00 | disposition home or self-care (01) ==
LOC: NFLDREF 03-31 11:14
PROVIDERS: PCP Family Medicine; Referring Provider Family Medicine; Visit Provider Family Medicine
DX: Z79.01 Long term (current) use of anticoagulants (principal)
CPT/HCPCS: 85610

== ENCOUNTER 2024-07-07 12:08 | Outpatient (CLI) | payer MEDICARE, SELFPAY | END 2024-07-07 12:09 | disposition home or self-care (01) | LOC: NFLDREF 07-11 03:42 | PROVIDERS: PCP Family Medicine; Referring Provider Family Medicine; Visit Provider Nurse Practitioner Family | DX: N30.00 Acute cystitis without hematuria (principal); N30.01 Acute cystitis with hematuria | CPT/HCPCS: 87086 ==

== ENCOUNTER 2024-08-23 10:00 | Outpatient (CLI) | payer MEDICARE, SELFPAY | END 2024-08-23 10:01 | disposition home or self-care (01) | LOC: NFLDREF 08-24 03:13 | PROVIDERS: PCP Family Medicine; Referring Provider Family Medicine; Visit Provider Family Medicine | DX: Z79.01 Long term (current) use of anticoagulants (principal) | CPT/HCPCS: 85610 ==

== ENCOUNTER 2024-11-11 09:04 | Outpatient (CLI) | payer MEDICARE, SELFPAY ==
--- NOTE | 2024-11-11 09:15 | CRLHL7_ITS ---
For Patients: As a result of the Century Cures Act, medical imaging exams and procedure reports are released immediately into your electronic medical record. You may view this report before your referring provider. If you have questions, please contact your health care provider. INDICATION: BILATERAL SCREENING MAMMOGRAM, ASYMPTOMATIC 79 Y/O FEMALE COMPARISON: 11/11/2023, 10/03/2022, 10/02/2021 TECHNIQUE: Digital mammogram in CC and MLO projections including computer-aided detection (CAD) and tomosynthesis. BREAST COMPOSITION: There are scattered areas of fibroglandular density. FINDINGS: No suspicious findings. ASSESSMENT: BI-RADS 2 Benign RECOMMENDATION: Annual screening mammogram. A lay language report of this examination will be provided to the patient. Dictated by: Wayne Pepper MD @ 11/17/2024 09:01:28 (Electronically Signed)
== END 2024-11-11 09:05 | disposition home or self-care (01) ==
PROVIDERS: PCP Family Medicine; Visit Provider Family Medicine
DX: Z12.31 Encounter for screening mammogram for malignant neoplasm of breast (principal)
CPT/HCPCS: 77063; 77067

== ENCOUNTER 2025-01-17 08:54 | Outpatient (CLI) | payer MEDICARE, SELFPAY | END 2025-01-17 08:55 | disposition home or self-care (01) | LOC: NFLDREF 01-20 18:29 | PROVIDERS: PCP Family Medicine; Referring Provider Family Medicine; Visit Provider Family Medicine | DX: E03.9 Hypothyroidism, unspecified (principal); I82.409 Acute embolism and thrombosis of unspecified deep veins of unspecified lower extremity; Z13.1 Encounter for screening for diabetes mellitus; Z79.01 Long term (current) use of anticoagulants; Z13.6 Encounter for screening for cardiovascular disorders | CPT/HCPCS: 80053; 80061; 84443 ==

== ENCOUNTER 2025-02-01 19:24 | Outpatient (CLI) | payer MEDICARE, SELFPAY ==
--- NOTE | 2025-02-01 19:45 | CRLHL7_ITS ---
For Patients: As a result of the Century Cures Act, medical imaging exams and procedure reports are released immediately into your electronic medical record. You may view this report before your referring provider. If you have questions, please contact your health care provider. INDICATION: Low back pain. COMPARISON: 01/20/2025. Technique Sagittal T1, T2, and STIR sequences. Axial T1 and T2 weighted sequences. FINDINGS: Lumbar curve convex the right. In sagittal plane, degenerative retrolisthesis of L1 on L2 measures approximately 5 millimeter. Otherwise, normal alignment. No fractures. No vertebral body loss of height. No ligamentous injury. No suspicious osseous lesions. Normal conus terminates at L1. T12-L1: Disc degeneration posterior disc bulge. No narrowing of the spinal canal. No neural foraminal narrowing. L1-2: Grade 1 retrolisthesis. Disc degeneration diffuse disc bulge eccentric to the right. No narrowing of spinal canal. Mild narrowing of bilateral foramina. Mild facet arthropathy. L2-3: Disc degeneration. Posterior disc bulge. Combined of facet arthropathy, there is moderate narrowing of spinal canal. No neural foraminal narrowing. L3-4: Disc degeneration. Posterior disc bulge. Moderate narrowing of spinal canal. Mild narrowing of bilateral foramina. Mild facet arthropathy. L4-5: Disc generation posterior disc bulge. Moderate narrowing of spinal canal. Mild narrowing of the left neural foramen. No narrowing of the right neural foramen. Mild facet arthropathy. L5-S1: Diffuse disc bulge. No narrowing of spinal canal. No impingement of the traversing S1 nerve roots. No neural foraminal narrowing. Moderate arthropathy. Degenerative changes of the SI joints. Bilateral renal cyst. IMPRESSION: 1. Degenerative retrolisthesis of L1 on L2. Otherwise normal alignment. No fractures 2. Lumbar spondylosis 3. At L1-2, mild narrowing of the bilateral neural foramina 4. At L2-3, moderate narrowing of the spinal canal. 5. At L4-5, moderate narrowing of the spinal canal. Mild narrowing of the left neural foramen. Dictated by Eren Gauthier MD @ 02/02/2025 10:09:11 AM (Electronically Signed)
== END 2025-02-01 19:25 | disposition home or self-care (01) ==
PROVIDERS: PCP Family Medicine; Visit Provider Family Medicine
DX: M47.896 Other spondylosis, lumbar region (principal); M51.26 Other intervertebral disc displacement, lumbar region
CPT/HCPCS: 72148

== ENCOUNTER 2025-04-12 09:06 | Outpatient (CLI) | payer MEDICARE, SELFPAY | END 2025-04-12 09:07 | disposition home or self-care (01) | LOC: NFLDREF 04-17 01:59 | PROVIDERS: PCP Family Medicine; Referring Provider Family Medicine; Visit Provider Family Medicine | DX: E03.9 Hypothyroidism, unspecified (principal); Z80.0 Family history of malignant neoplasm of digestive organs; Z13.79 Encounter for other screening for genetic and chromosomal anomalies | CPT/HCPCS: 82378; 84439; 84443 ==